=== PATIENT | male | born 1960 | race African-American/Black ===

== ENCOUNTER 2025-02-08 20:16 | Inpatient (IN) | payer OTHER ==
[~2025-02-08] VITALS: Ht 185.4 cm; Wt 51.5 kg
[2025-02-08 20:18] VITALS: O2SAT 94
[2025-02-08] MEDS: SODIUM CHLORIDE 0.9% (SEPSIS BOLUS) IV ONE (20:40)
[2025-02-08 20:42] LABS: BG BASE EXCESS 0.4 mmol/L (-2.0-3.0); BG CARBOXYHEMOGLOBIN 0.5 % (0.5-1.5); BG DEOXYHEMOGLOBIN 7.4 % (0.0-5.0); BG HCO3 ACT 22.5 mmol/L (21.0-28.0); BG METHEMOGLOBIN 0.0 % (0.5-1.5); BG OXYGEN SATURATION 92.6 % (94.0-98.0); BG OXYHEMOGLOBIN 92.1 % (94.0-98.0); BG PCO2 28.7 mmHg (35.0-48.0); BG PH 7.513 (7.350-7.450); BG PO2 65.0 mmHg (83.0-108.0); BG SAMPLE SITE RIGHT RADIAL; BG TOTAL HEMOGLOBIN 11.4 g/dL (13.5-17.5); BG VENT MODE ROOM AIR
[2025-02-08] MEDS: PIPERACILLIN/TAZO 3.375G/50ML 50 ML IV ONE (21:14)
[2025-02-08 21:39] LABS: HEMATOCRIT. 30.2 % (42.0-52.0); HEMOGLOBIN. 9.4 g/dL (14.0-18.0); MEAN PLATELET VOLUME 7.7 fl (7.4-10.4); PLATELET 343 x1000/uL (130-400); RED BLOOD CELL COUNT 3.27 mill/uL (4.7-6.1); RED CELL DISTRIBUTION WIDTH 14.9 % (11.6-14.6)
[2025-02-08 21:58] LABS: TROPONIN I HIGH SENSITIVITY 24 ng/L (3.0-53)
[2025-02-08 21:59] LABS: CREATININE 4.5 mg/dL (0.6-1.3)
[2025-02-08 22:01] LABS: ASPARTATE AMINOTRANSFERASE 13 IU/L (<34); BILIRUBIN DIRECT 0.1 mg/dL (<=3.0); BILIRUBIN TOTAL 0.3 mg/dL (0.1-1.0); PROTEIN TOTAL 6.9 g/dL (6.0-8.3)
[2025-02-08 22:07] LABS: UREA NITROGEN BLOOD 103 mg/dL (9-23)
[2025-02-08] MEDS ORDERED: MORPHINE SULFATE 2 MG/ML INJ (NOT FOR IM USE) IV ONE (22:30)
[2025-02-08 22:32] LABS: INR 1.3
[2025-02-08 22:43] LABS: BAND% 3.0 % (1.0-6.0); MONOCYTES % MANUAL 4.0 % (2.0-8.0); NEUTROPHILS % MANUAL 93.0 % (45.0-75.0); PLATELET ESTIMATE NORMAL
[2025-02-08 22:45] LABS: LYMPHOCYTES % MANUAL 0.0 % (20.0-50.0)
[2025-02-08] MEDS: VANCOMYCIN 1G PREMIX 200 ML IV ONE (22:53)
[2025-02-08] MEDS: MORPHINE SULFATE 4 MG/ML INJ (FOR IV/IM USE) IV SCH (22:57)
[2025-02-08 23:06] LABS: INFLUENZA TYPE A Presumptive Negative (Pres. Neg.)
[2025-02-08 23:07] LABS: INFLUENZA TYPE B Presumptive Negative (Pres. Neg.); RESPIRATORY SYNCYTIAL VIRUS Not Detected (Not Detectd)
[2025-02-09 00:55] VITALS: BP 102/75; PULSE 80; RESP 18; TEMP 36.4736
[2025-02-09] MEDS ORDERED: DEXTROSE 50% WATER 50ML SYRINGE IV PRN (01:00)
[2025-02-09] MEDS ORDERED: HYDRALAZINE 20MG/ML VIAL IV PRN (01:00)
[2025-02-09] MEDS ORDERED: ONDANSETRON HCL 4MG/2ML INJ IV PRN (01:00)
[2025-02-09] MEDS ORDERED: IPRATROPIUM/ALBUTEROL 0.5-3(2.5)MG/3ML NEB HHN PRN (01:00)
[2025-02-09] MEDS: DEXTROSE 5% WATER 1,000 ML IV SCH (02:15)
[2025-02-09] MEDS ORDERED: LACT10SO81 MT (03:13)
[2025-02-09] MEDS ORDERED: FINA-37 PO (03:13)
[2025-02-09] MEDS ORDERED: MEMA5TAB16 PO (03:13)
[2025-02-09] MEDS ORDERED: NITR-87 GT (03:13)
[2025-02-09] MEDS ORDERED: ALBU05 IH (03:13)
[2025-02-09] MEDS ORDERED: ATEN50TA PO (03:13)
[2025-02-09] MEDS ORDERED: CARB-32 MT (03:13)
[2025-02-09] MEDS ORDERED: ZINC220T3 PO (03:13)
[2025-02-09] MEDS ORDERED: B-CO1TAB2 PO (03:13)
[2025-02-09] MEDS ORDERED: TERA1CAP53 PO (03:13)
[2025-02-09] MEDS ORDERED: AMLO5TAB88 PO (03:13)
[2025-02-09] MEDS ORDERED: BALS60OI4 TP (03:13)
[2025-02-09] MEDS ORDERED: SODI15VI IH (03:13)
[2025-02-09] MEDS ORDERED: CYAN-50 PO (03:13)
[2025-02-09] MEDS ORDERED: TERA5CAP4 PO (03:13)
[2025-02-09] MEDS ORDERED: TRAZ150T78 PO (03:13)
[2025-02-09] MEDS ORDERED: ALLO100T PO (03:13)
[2025-02-09 04:00] VITALS: BP 102/72; PULSE 76; RESP 18; TEMP 36; O2SAT 98
[2025-02-09 06:21] LABS: CLARITY URINE CLEAR (CLEAR); COLOR URINE YELLOW (YELLOW); GLUCOSE URINE NEGATIVE (NEGATIVE); KETONES URINE NEGATIVE (NEGATIVE); LEUKOCYTE ESTERASE URINE TRACE (NEGATIVE); NITRITE URINE NEGATIVE (NEGATIVE); OCCULT BLOOD URINE TRACE (NEGATIVE); PH URINE 5.0 (4.5-8.0); PROTEIN URINE 1+ (NEGATIVE); SPECIFIC GRAVITY URINE 1.016 (1.005-1.030); UROBILINOGEN URINE 0.2 E.U./dL (0.2-1.0)
[2025-02-09 06:34] LABS: SODIUM URINE RANDOM 13.0 mEq/L
[2025-02-09 06:41] LABS: CREATININE URINE RANDOM 82.0 mg/dL
[2025-02-09 06:42] LABS: *AMPHETAMINES SCREEN URINE NEGATIVE (NEGATIVE); *BARBITURATES SCREEN URINE NEGATIVE (NEGATIVE); *BENZODIAZEPINES SCREEN URINE NEGATIVE (NEGATIVE); *COCAINE SCREEN URINE NEGATIVE (NEGATIVE); CANNABINOID URINE SCREEN NEGATIVE (NEGATIVE); ECSTASY MDMA SCREEN URINE NEGATIVE (NEGATIVE); METHADONE URINE SCREEN NEGATIVE (NEGATIVE); OPIATES URINE SCREEN NEGATIVE (NEGATIVE); PHENCYCLIDINE URINE SCREEN NEGATIVE (NEGATIVE)
[2025-02-09 06:44] LABS: CREATININE 4.5 mg/dL (0.6-1.3)
[2025-02-09 06:45] LABS: UREA NITROGEN BLOOD 60 mg/dL (9-23)
[2025-02-09 06:47] LABS: PHOSPHORUS 3.8 mg/dL (2.5-4.9)
[2025-02-09 06:49] LABS: BACTERIA URINE TRACE; SQUAMOUS EPITHELIAL CELL URINE NONE SEEN /lpf (RARE/1+)
[2025-02-09 06:50] LABS: RBC URINE 0-2 /hpf (0-2); WBC URINE 0-2 /hpf (0-2)
[2025-02-09 07:51] LABS: FOLIC ACID (FOLATE) SERUM 10.16 ng/mL (>5.38)
[2025-02-09 08:00] VITALS: BP 106/67; PULSE 58; RESP 18; TEMP 36.4; O2SAT 95
[2025-02-09] MEDS: PIPERACILLIN/TAZO 3.375G/50ML 50 ML IV SCH (08:13)
[2025-02-09] MEDS: ENOXAPARIN 30MG/0.3ML SYR SUBCUT SCH (08:18)
[2025-02-09] MEDS: PANTOPRAZOLE SODIUM 40 MG/VIAL IV SCH (08:18)
[2025-02-09 09:20] LABS: VITAMIN B12 SERUM > 2000 pg/mL (211-911)
[2025-02-09] MEDS ORDERED: NON FORMULARY MED XX SCH (10:00)
[2025-02-09] MEDS: IRON SUCROSE COMPLEX 100 MG/5 ML ML IV SCH (10:37)
[2025-02-09 12:00] VITALS: BP 99/71; PULSE 77; RESP 20; TEMP 36.6; O2SAT 99
[2025-02-09 16:00] VITALS: BP 104/70; PULSE 75; RESP 20; TEMP 36.5; O2SAT 100
[2025-02-09] MEDS: BLOOD SUGAR DIAGNOSTIC STRIP TEST SCH (16:37)
[2025-02-09 20:00] VITALS: BP 95/63; PULSE 78; RESP 18; TEMP 36.2; O2SAT 100
[2025-02-10] VITALS: BP 98/68; PULSE 84; RESP 20; TEMP 36.9; O2SAT 100
[2025-02-10 04:00] VITALS: BP 99/68; PULSE 84; RESP 18; TEMP 36.1; O2SAT 100
[2025-02-10 08:00] VITALS: BP 113/74; PULSE 81; RESP 16; TEMP 36.4; O2SAT 100
[2025-02-10 12:00] VITALS: BP 115/77; PULSE 78; RESP 18; TEMP 36.4; O2SAT 95
[2025-02-10 16:00] VITALS: BP 100/64; PULSE 77; RESP 17; TEMP 36.3; O2SAT 100
[2025-02-10 18:42] VITALS: BP_SYST 100; BP_SYST 102; BP_DIAS 64; BP_DIAS 68; PULSE 77; PULSE 88; RESP 17; RESP 18; TEMP 97.3; TEMP 97.4
[2025-02-10] MEDS ORDERED: VANCOMYCIN 500 MG in DEXT 5% WATER 100 ML IV SCH (21:00)
[2025-02-10] MEDS ORDERED: VANCOMYCIN 500MG/100ML IV SCH ×2 (21:00)
== END 2025-02-10 20:55 | disposition short-term general hospital (02) | DRG 871 ==
LOC: ER 20:16 → EDBEDREQTM 23:03 → EDBEDREQ 23:03 → ENRESERV 23:22 → 8WST 02-09 01:33
PROVIDERS: ADMIT Hospitalist; ATTEND Hospitalist
DX: A41.9 Sepsis, unspecified organism (principal); E43 Unspecified severe protein-calorie malnutrition; N17.0 Acute kidney failure with tubular necrosis; J96.01 Acute respiratory failure with hypoxia; E87.0 Hyperosmolality and hypernatremia; E87.20 Acidosis, unspecified; Z68.1 Body mass index [BMI] 19.9 or less, adult; E86.1 Hypovolemia; R62.7 Adult failure to thrive; Z20.822 Contact with and (suspected) exposure to COVID-19; F02.80 Dementia in other diseases classified elsewhere, unspecified severity, without behavioral disturbance, psychotic disturbance, mood disturbance, and anxiety; G31.83 Neurocognitive disorder with Lewy bodies; E86.0 Dehydration; E83.52 Hypercalcemia; E87.5 Hyperkalemia; N28.1 Cyst of kidney, acquired; N18.9 Chronic kidney disease, unspecified; D50.9 Iron deficiency anemia, unspecified; I12.9 Hypertensive chronic kidney disease with stage 1 through stage 4 chronic kidney disease, or unspecified chronic kidney disease; Z66 Do not resuscitate; L89.150 Pressure ulcer of sacral region, unstageable; I73.9 Peripheral vascular disease, unspecified; S90.822A Blister (nonthermal), left foot, initial encounter; S90.821A Blister (nonthermal), right foot, initial encounter; L89.619 Pressure ulcer of right heel, unspecified stage; R79.89 Other specified abnormal findings of blood chemistry; L89.629 Pressure ulcer of left heel, unspecified stage; Z74.01 Bed confinement status; Z87.01 Personal history of pneumonia (recurrent); Z79.899 Other long term (current) drug therapy; X58.XXXA Exposure to other specified factors, initial encounter; Y93.89 Activity, other specified; Y92.89 Other specified places as the place of occurrence of the external cause; Y99.8 Other external cause status
CPT/HCPCS: 36415; 36600; 71045; 76770; 80048; 80076; 80305; 80320; 81003; 82375; 82570; 82607; 82746; 82805; 82962; 83036; 83540; 83550; 83605; 83735; 83880; 83930; 84100; 84134; 84145; 84295; 84300; 84484; 85025; 85379; 86850; 86900; 87420; 87426; 87804; 92610; 93005; 93970; 96365; 96367; 99291; A4606; J1650; J2270; J2470; J2543; J3373; J7030; J7060; G0480